=== PATIENT | male | born 1975 | race Hispanic/Latino ===

== ENCOUNTER 2018-12-11 09:15 | Emergency (ER) | payer OTHER ==
[~2018-12-11] VITALS: Ht 177.8 cm; Wt 95.3 kg
[2018-12-11] MEDS ORDERED: CLINDAMYCIN PHOS 600 MG/ 4 ML VIAL IM ONE (10:30)
[2018-12-11] MEDS ORDERED: HYDROCODONE/APAP 10MG-325MG TAB PO ONE (10:30)
[2018-12-11] MEDS ORDERED: LIDOCAINE 2%/ EPINEPHRINE 20ML MDV INJ ONE (10:30)
--- NOTE | 2018-12-11 10:42 | NUR ---
ARNOLD Montes AT BEDSIDE DOING I&D
== END 2018-12-11 11:26 | disposition home or self-care (01) ==
LOC: ER 09:15
DX: L03.317 Cellulitis of buttock (principal)
CPT/HCPCS: 99284; J2001

== ENCOUNTER 2019-06-29 21:29 | Emergency (ER) | payer SELFPAY ==
[~2019-06-29] VITALS: Ht 177.8 cm; Wt 95.3 kg
--- OUTSIDE RECORDS SUMMARY | 2019-06-29 21:31 | XMS REPORT | Encounter Summary ---
Author Organization Unknown Address [address] [place] [address] Phone [phone] Care Team Providers Care Development Lead Name Role Phone Dr. Wilmer Brooks 3 [phone] Reason for Visit other - see typed reason; Bilateral elbow pain Instructions 1. Bilateral elbow joint pain XR, elbow, 2 view - *Please call the patient and schedule* rheumatology referral - *Please call the patient and make an appointment* PLEASE SEND BACK CONSULT NOTES TO [phone] 2. Body mass index 25-29 - overweight aprenda acerca del peso saludable - [learning about healthy weight] 3. Influenza vaccination given Fluzone Quad 4090-1893 (PF) 60 mcg (15 mcg x 4)/0.5 mL IM syringe 4. Microscopic hematuria 5. 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 Plan of Care Reminders Provider Appointments Est Patient 03/31/2019 1:30PM Aranza Man MD Lab None recorded. Referral Rheumatology Referral 12/30/2018 Wing Edward MD PHD Procedures None recorded. Surgeries None recorded. Imaging XR, Elbow, 2 View 12/30/2018 [facility] Radiology Medications Name Start Date Bromfed DM 2 mg-30 mg-10 mg/5 mL oral syrup Take 10 mL every 4-6 hours by oral route as needed. doxazosin 2 mg tablet Take 1 tablet every day by oral route at bedtime. Zithromax Z-Harrison 250 mg tablet TAKE 2 TABLETS (500 MG) BY ORAL ROUTE ONCE DAILY FOR 1 DAY THEN 1 TABLET (250 MG) BY ORAL ROUTE ONCE DAILY FOR 4 DAYS Medications Administered None recorded. Vitals Height Weight BMI Blood Pressure 5 ft 10.5 in 208 lbs 29.4 kg/m2 116/72 mm[Hg] Results Lab Results None recorded. Allergies Code Code System Name Reaction Severity Status Onset NKDA Problems None recorded. Procedures Date Name Performed by 12/30/2018 XR, Elbow, 2 View [facility] [address] [place], [place] [id number] (Work Place) Vaccine List Vaccine Type influenza, injectable, quadrivalent, preservative free 12/30/2018 Tdap 04/05/2015 Social History Tobacco Smoking Status Light Tobacco Smoker (2 PPW) Past Encounters 02/24/2019 Acute Bronchitis; Tobacco Dependence, Continuous; Body Mass Index 25-29 - Overweight Manpreet Nix, DO: [address] [place] [id number], Ph. 12/30/2018 Bilateral Elbow Joint Pain; Body Mass Index 25-29 - Overweight; Influenza Vaccination Given; Microscopic Hematuria; Tobacco User Aranza Man MD: [address] [place] [address], Ph. History of Present Illness Note:42yo male presents for three month follow-up visit. Pt is Libyan-speaking - visit translated by JUANIS. Last visit was initial visit 09/27/18. Moved to [place] 18mo ago from [facility].<div>Had boil on right buttock about 2wks ago - went to urgent care for I&D and packing and took a course of clindamycin (completed 7 days). Healed.</div><div>Since last visit, pt saw urology, Dr Holland on 12/19/18 for microhematuria. Was started on doxazosin 2mg qd for BPH. Return visit to be scheduled.</div><div>Reviewed & printed copy of labs from initial visit 09/27/18. Translated for pt into Libyan.
<div>Here today with bilateral elbow pains for past 6-7yrs. Per pt was seen by PCP in [facility] & amp; sent to specialist (rheum) in [place] for elbow pain. Had normal XR & MRI of elbows. Does not take any pain medicine. Is right handed. No pains or swelling in hands or wrist. No swelling or redness of elbows.
</div><div> Cannot extend left elbow fully.</div><div>
</div></div> Review of Systems:ROS as noted in the HPI Review of Systems Comprehensive General Adult ROS Reported By: Patient Constitutional: Constitutional: no fever Eyes: Eyes: no vision change Cardiovascular: Cardiovascular: no chest pain Respiratory: Respiratory: no cough, no wheezing, no shortness of breath Gastrointestinal: Gastrointestinal: no abdominal pain Genitourinary: Genitourinary: hematuria; groin pain on left Musculoskeletal: Musculoskeletal: arthralgias/joint pain Neurologic: Neurologic: no loss of consciousness, no headaches Psychiatric: Psych: no depression, no alcohol abuse, no anxiety, no suicidal thoughts Physical Exam General Adult Exam (male) Reported By: Patient Constitutional: General Appearance: healthy-appearing. Level of Distress: NAD. Ambulation: ambulating normally Psychiatric: Mental Status: active and alert, normal mood, normal affect Eyes: Lids and Conjunctivae: non-injected. Pupils: PERRLA. EOM: EOMI. Sclerae: non-icteric ENMT: Hearing: no hearing loss. Oropharynx: moist mucous membranes Lungs: Respiratory effort: no dyspnea. Auscultation: breath sounds normal, good air movement, no wheezing, no rales/crackles Cardiovascular: Heart Auscultation: RRR, normal S1, normal S2, no murmurs. Neck vessels: no carotid bruits Abdomen: Bowel Sounds: normal. Inspection and Palpation: soft, non-distended, no tenderness, no guarding, no rebound tenderness, no masses, no CVA tenderness; no hernia appreciated Musculoskeletal:: Joints, Bones, and Muscles: no contractures, no bony abnormalities, no malalignment, no tenderness, limited ROM; good ROM of bilateral elbows, except at end of extension. Describes morning stiffness. Extremities: no edema Neurologic: Gait and Station: normal gait Skin: Inspection and palpation: no rash
--- OUTSIDE RECORDS SUMMARY | 2019-06-29 21:31 | XMS REPORT | Encounter Summary ---
Author Organization Unknown Address [address] [place] [address] Phone [phone] Care Team Providers Care Contract Administrative Assistant Name Role Phone Dr. Wilmer Brooks 3 [phone] Reason for Visit Annual physical - male; other - see typed reason; Bilateral elbow pain Instructions 1. Adult health examination CBC w/ auto diff CMP, serum or plasma lipid panel, serum TSH, serum or plasma 2. Body mass index 25-29 - overweight aprenda acerca del peso saludable - [learning about healthy weight] 3. Microscopic hematuria urinalysis, dipstick culture, urine urology referral - Syrian Speaking Please call patient and schedule him an appointment. 4. Bilateral elbow joint pain 5. Multiple joint pain CARA (antinuclear antibodies) titer + pattern, ifa, serum rf (rheumatoid factor), serum erythrocyte sedimentation rate by westergren method 6. Family history of Cardiovascular disease 7. 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 Plan of Care Reminders Provider Appointments Return to Office on or around 12/28/2018 Aranza Man MD Est Patient 12/30/2018 9:30AM Aranza Man MD Lab CBC W/ Auto Diff 09/27/2018 [facility] CMP, Serum or Plasma 09/27/2018 [facility] Lipid Panel, Serum 09/27/2018 [facility] TSH, Serum or Plasma 09/27/2018 [facility] Urinalysis, Dipstick 09/27/2018 [facility] ([facility] [place] Culture, Urine 09/27/2018 [facility] CARA (Antinuclear Antibodies) Titer + Pattern, Ifa, Serum 09/27/2018 [facility] Rf (Rheumatoid Factor), Serum 09/27/2018 [facility] Erythrocyte Sedimentation Rate by Westergren Method 09/27/2018 [facility] Referral Urology Referral 09/27/2018 Win Javed MD Procedures None recorded. Surgeries None recorded. Imaging None recorded. Medications No Medications Reported Medications Administered None recorded. Vitals Height Weight BMI Blood Pressure 5 ft 10.5 in 199 lbs 28.1 kg/m2 122/82 mm[Hg] Lab Results Date Name Specimen Result Interpretation Description Value Range Status Address Urinalysis, Dipstick Color Color yellow [facility] ([facility] [place]: [address] [place] Color Appearance clear [facility] [place]: [address] [place] Color Glucose negative [facility] [place]: [address] [place] Color Bilirubin negative [facility] [place]: [address] [place] Color Ketones negative [facility] [place]: [address] [place] Color Specific [place] 1.025 [facility] [place]: [address] [place] Color Blood moderate [facility] [place]: [address] [place] Color PH 6.0 [facility] [place]: [address] [place] Color Protein negative [facility] [place]: [address] [place] Color Urobilinogen 0.2 [facility] [place]: [address] [place] Color Nitrites negative [facility] [place]: [address] [place] Color Leukocytes negative [facility] [place]: [address] [place] Allergies Code Code System Name Reaction Severity Status Onset NKDA Problems None recorded. Procedures None recorded. Vaccine List None recorded. Social History Smoking Status Light Tobacco Smoker (2 PPW) Past Encounters 09/27/2018 Adult Health Examination; Body Mass Index 25-29 - Overweight; Microscopic Hematuria; Bilateral Elbow Joint Pain; Multiple Joint Pain; Family History of Cardiovascular Disease; Tobacco User Aranza Man MD: [address] [place] [address], Ph. History of Present Illness Note:42yo male presents to become established in our office. New to [facility]. Moved to [place] 18mo ago from [facility]. Pt is Syrian-speaking - visit translated by FEDE.<div>Here today for evaluation of left groin pain intermittently for the past 2yrs when lifting or using force on something heavy. Lasts about 10 seconds, then resolves. Sharp pain. Occurs sometimes with urination. Had STD testing about 3-4mo ago at work (employer) per pt - all negative. No penile discharge or lesions. No N/V/D/C. No blood in stool. No cloudy urine. UA in office shows moderate blood. No fever or backpain.</div><div>Also with bilateral elbow pain for past 6-7yrs. Describes morning stiffness with elbows locking up. Mainly in the mornings. Per pt was seen by PCP in [facility] & sent to specialist in [place] for elbow pain. Had normal XR & MRI of elbows. Does not take any pain medicine. Is right handed. No pains or swelling in hands or wrist. No swelling or redness of elbows.</div><div>Cannot extend left elbow fully.</div> Review of Systems:ROS as noted in the [...]
--- OUTSIDE RECORDS SUMMARY | 2019-06-29 21:31 | XMS REPORT | Encounter Summary ---
Author Organization Unknown Address [address] [place] [address] Phone [phone] Care Team Providers Care Brush Cutter Name Role Phone Dr. Wilmer Brooks 3 [phone] Reason for Visit Bilateral ear pain/problem; sore throat; cough / congestion Instructions 1. Acute bronchitis Bromfed DM 2 mg-30 mg-10 mg/5 mL oral syrup Zithromax Z-Harrison 250 mg tablet 2. Tobacco dependence, continuous 3. Body mass index 25-29 - overweight aprenda acerca del peso saludable - [learning about healthy weight] Discussion Note: None recorded. Plan of Care Reminders Provider Appointments Est Patient 03/31/2019 1:30PM Aranza Man MD Lab None recorded. Referral None recorded. Procedures None recorded. Surgeries None recorded. Imaging None recorded. Medications Name Start Date Bromfed DM 2 [...] BMI Blood Pressure 5 ft 10.5 in 206 lbs 29.1 kg/m2 110/82 mm[Hg] Results Lab Results None recorded. Allergies Code Code System Name Reaction Severity Status Onset NKDA Problems None recorded. Procedures None recorded. Vaccine List Vaccine Type influenza, injectable, quadrivalent, preservative free 12/30/2018 Tdap 04/05/2015 Social History Tobacco Smoking Status Light Tobacco Smoker (2 PPW) Past Encounters 02/24/2019 Acute Bronchitis; Tobacco Dependence, Continuous; Body Mass Index 25-29 - Overweight Manpreet Nix, DO: [address] [place] [address], Ph. History of Present Illness Upper Respiratory Symptoms Reported By: Patient Upper Respiratory Symptoms: Location: chest, throat. Quality: productive cough, sharp throat pain, colored phlegm. Severity: moderate. Duration: ; 3 days. Onset/Timing: gradual. Context: no sick contacts, no foreign travel, smoker. Modifying Factors: OTC medication. Associated Symptoms: no vomiting, no diarrhea, no nausea, chest pain, shortness of breath, fatigue, fever, sore throat Review of Systems Comprehensive General Adult ROS Reported By: Patient Constitutional: Constitutional: no night sweats, no significant weight gain, no significant weight loss, no exercise intolerance, lethargy Eyes: Eyes: no dry eyes, no vision change, no irritation ENMT: Ears: no difficulty hearing, no ear pain. Nose: no frequent nosebleeds, no sinus problems, nose problems. Mouth/Throat: no bleeding gums, sore throat Cardiovascular: Cardiovascular: no chest pain, no shortness of breath when walking, no palpitations Respiratory: Respiratory: no wheezing, no shortness of breath, cough Gastrointestinal: Gastrointestinal: no abdominal pain, no nausea, no vomiting, no constipation, no diarrhea Physical Exam Upper Respiratory Infection Exam Comprehensive Reported By: Patient Constitutional: General Appearance mild distress Skin: Inspection and palpation: no rash, no lesions, no ulcer, good turgor, no jaundice Head: Sinuses no tenderness Eyes: Pupils EOM intact, conjunctiva non-injected Ears: Right External auditory canal no erythema, no discharge. Left External auditory canal no erythema, no discharge. Right Tympanic membrane pearly vera, landmarks clear. Left Tympanic membrane: pearly vera, landmarks clear Nose: Nasal Mucosa pink and moist, clear discharge Oral Cavity/Mouth: Posterior pharynx: normal Lungs: Respiratory effort unlabored. Auscultation breath sounds normal, no wheezing, no rales / crackles, no rhonchi Cardiovascular System: Auscultation regular rate and rhythm, no murmur, no rubs, no gallops
[2019-06-29 22:07] LABS: STREPTOCOCCUS GRP A ANTIGEN NEGATIVE (NEGATIVE)
[2019-06-29 22:17] LABS: INFLUENZAE A&B ANTIGEN (RAPID) NEGATIVE (NEGATIVE)
--- NOTE | 2019-06-29 22:48 | Diagnostic Imaging Report ---
EXAMINATION: CHEST 2 VIEWS INDICATION: Cough, fever, sore throat COMPARISON: None FINDINGS: TUBES and LINES: None. LUNGS: Normal lung volumes. Lungs are clear. No consolidations. PLEURA: No pleural effusion or pneumothorax. HEART AND MEDIASTINUM: The cardiomediastinal silhouette is unremarkable. BONES AND SOFT TISSUES: No acute osseous lesion. Soft tissues are unremarkable. UPPER ABDOMEN: No free air under the diaphragm. IMPRESSION: No acute thoracic radiographic abnormality. Signed by: Tariq Kendall DO on 06/29/2019 10:44 PM
== END 2019-06-29 23:03 | disposition home or self-care (01) ==
LOC: ER 21:29
DX: R50.9 Fever, unspecified (principal); R05 Cough; J30.1 Allergic rhinitis due to pollen
CPT/HCPCS: 71046; 83518; 87070; 87400; 99283

== ENCOUNTER 2020-07-08 12:20 | Emergency (ER) | payer SELFPAY ==
[~2020-07-08] VITALS: Ht 177.8 cm; Wt 95.3 kg
[2020-07-08] MEDS ORDERED: ASPIRIN 81 MG CHEW TAB PO STA (12:37)
[2020-07-08] MEDS ORDERED: ASPIRIN 81 MG CHEW TAB PO ONE (12:45)
[2020-07-08 12:59] LABS: BASOPHILS # (AUTO) 0.1 (0.0-0.1); BASOPHILS % 0.8 % (0.0-1.0); EOSINOPHILS # (AUTO) 0.1 (0.0-0.4); EOSINOPHILS % 1.4 % (0.0-6.0); HEMATOCRIT 46.2 % (38.2-49.6); HEMOGLOBIN 15.8 g/dL (14.0-18.0); LYMPHOCYTES # (AUTO) 4.6 (1.0-3.2); LYMPHOCYTES % 45.7 % (18.0-39.1); MEAN CORPUSCULAR HEMOGLOBIN 30.6 pg (28-32); MEAN CORPUSCULAR HGB CONC 34.2 g/dL (31-35); MEAN CORPUSCULAR VOLUME 89.4 fL (81-99); MONOCYTES # (AUTO) 0.8 (0.2-0.8); MONOCYTES % 8.1 % (4.4-11.3); NEUTROPHILS # (AUTO) 4.4 (2.1-6.9); NEUTROPHILS % 43.7 % (38.7-80.0); PLATELET COUNT 305 x10e3/uL (140-360); RED BLOOD COUNT 5.17 x10e6/uL (4.3-5.7); RED CELL DISTRIBUTION WIDTH 13.2 % (11.7-14.4)
[2020-07-08 13:30] LABS: ALANINE AMINOTRANSFERASE 27 IU/L (0-55); ALBUMIN 4.1 g/dL (3.5-5.0); ALBUMIN/GLOBULIN RATIO 1.1 (0.8-2.0); ALKALINE PHOSPHATASE 80 IU/L (40-150); ANION GAP 14.4 mmol/L (8-16); BLOOD UREA NITROGEN 11 mg/dL (7-26); BUN/CREATININE RATIO 13 (6-25); CARBON DIOXIDE 25 mmol/L (22-29); CHLORIDE 102 mmol/L (98-107); CREATINE KINASE 112 IU/L (30-200); CREATININE, SERUM 0.83 mg/dL (0.72-1.25); EST GLOMERULAR FILTRATION RATE > 60 ML/MIN (60-); GLUCOSE 133 mg/dL (74-118); POTASSIUM 3.4 mmol/L (3.5-5.1); SODIUM 138 mmol/L (136-145)
[2020-07-08 14:42] LABS: CLARITY,URINE CLEAR (CLEAR); COLOR,URINE YELLOW (YELLOW); KETONES,URINE NEGATIVE (NEGATIVE); LEUKOCYTE ESTERASE ,URINE NEGATIVE (NEGATIVE); NITRITE,URINE NEGATIVE (NEGATIVE); PROTEIN,URINE DIPSTICK NEGATIVE (NEGATIVE); URINE UROBILINOGEN 1 mg/dL (0.2 - 1)
[2020-07-08 14:52] LABS: MUCUS,URINE FEW (RARE)
[2020-07-08 15:49] VITALS: BP 133/99
== END 2020-07-08 15:51 | disposition home or self-care (01) ==
LOC: ER 12:56
DX: R07.9 Chest pain, unspecified (principal)
CPT/HCPCS: 36415; 71045; 80053; 81001; 82550; 82553; 83880; 84484; 85025; 93005; 99284